=== PATIENT | female | born 1955 | race Caucasian/White ===

== ENCOUNTER → 2016-11-19 | Outpatient (CLI) | payer OTHER, BC ==
[~2016-11-19] MED LIST: ACEBUTOLOL HCL200 MG PO; ALPRAZOLAM ER3 MG PO; ALPRAZOLAM0.5 MG PO; ALPRAZOLAM2 MG PO; ASPIRIN325 MG PO; BACLOFEN10 MG PO; CARTIA XT180 MG PO; CARTIA XT240 MG PO; CYMBALTA30 MG PO; CYMBALTA60 MG PO; Cardizem CD,Cartia X PO; Cymbalta PO; DIGOXIN125 MCG PO; Ecotrin PO; HYDROCODON-ACE1 EAC7; HYDROCODON-ACE1 EAC7 PO; LIORESAL10 MG PO; LIPITOR40 MG PO; Lanoxin,Digitek PO; METHADONE10 MG PO; Methadone PO; NEXIUM40 MG PO; Omnicef PO; QUESTRAN PACKET4 GM; REGLAN10 MG PO; RISPERDAL1 MG PO; RITALIN LA20 MG PO; Reglan PO; SECTRAL PO; SECTRAL200 MG PO; TRAZODONE HCL50 MG PO; VICODIN 5-3001 EACH PO; Vicodin,Norco 5/325 PO; XANAX2 MG PO; Xanax PO; ZOLOFT100 MG PO
== END | disposition home or self-care (01) ==
LOC: RAD 09:23
DX: R10.11 Right upper quadrant pain (principal)
CPT/HCPCS: 74177

== ENCOUNTER → 2016-12-24 | Outpatient (CLI) | payer OTHER, BC | END | disposition home or self-care (01) | LOC: NUC 07:23 | DX: R10.13 Epigastric pain (principal) | CPT/HCPCS: 78226; A9537 ==

== ENCOUNTER 2017-06-07 09:13 | Day surgery (SDC) | payer OTHER, BC ==
[~2017-06-07] VITALS: Ht 152.4 cm; Wt 72.6 kg
[~2017-06-07 09:13] MED LIST changes: +ARICEPT5 MG PO; +ATORVASTATIN CA80 MG PO; +BENTYL10 MG PO; +FLECAINIDE ACE100 MG PO; +LASIX20 MG PO; +POTASSIUM CHLO10 ME3 PO; +PROTONIX40 MG PO; +RITALIN10 MG PO; +XANAX1 MG PO; +XARELTO20 MG PO
== END 2017-06-07 11:35 | disposition home or self-care (01) ==
LOC: CATH 09:13
PROC: 5A2204Z Restoration of Cardiac Rhythm, Single (ICD-10-PCS; principal; 2017-06-07)
DX: I48.1 Persistent atrial fibrillation (principal); I10 Essential (primary) hypertension; I65.22 Occlusion and stenosis of left carotid artery; E78.5 Hyperlipidemia, unspecified; E66.3 Overweight; Z68.30 Body mass index [BMI] 30.0-30.9, adult; Z79.01 Long term (current) use of anticoagulants
CPT/HCPCS: 93005

== ENCOUNTER → 2017-06-27 | Outpatient (CLI) | payer OTHER, BC | END | disposition home or self-care (01) | LOC: RAD 08:16 | DX: I06.0 Rheumatic aortic stenosis (principal); I77.1 Stricture of artery; N28.89 Other specified disorders of kidney and ureter; I48.91 Unspecified atrial fibrillation | CPT/HCPCS: 74175 ==

== ENCOUNTER 2017-07-15 09:59 | Day surgery (SDC) | payer OTHER, BC | END 2017-07-15 13:18 | disposition home or self-care (01) | LOC: CATH 09:59 | PROC: 5A2204Z Restoration of Cardiac Rhythm, Single (ICD-10-PCS; principal; 2017-07-15) | DX: I48.1 Persistent atrial fibrillation (principal); I10 Essential (primary) hypertension; I65.29 Occlusion and stenosis of unspecified carotid artery; E78.2 Mixed hyperlipidemia; Z79.01 Long term (current) use of anticoagulants | CPT/HCPCS: 93005 ==

== ENCOUNTER 2017-09-01 11:28 | Day surgery (SDC) | payer OTHER, BC ==
[2017-09-01] MEDS ORDERED: SECTRAL200 MG PO (12:16)
[2017-09-01] MEDS ORDERED: AMIODARONE HCL200 MG PO ×2 (12:17→13:14)
== END 2017-09-01 14:21 | disposition home or self-care (01) ==
LOC: CATH 11:28
PROC: 5A2204Z Restoration of Cardiac Rhythm, Single (ICD-10-PCS; principal; 2017-09-01)
DX: I48.1 Persistent atrial fibrillation (principal); I10 Essential (primary) hypertension; E78.5 Hyperlipidemia, unspecified; I65.29 Occlusion and stenosis of unspecified carotid artery; Z79.01 Long term (current) use of anticoagulants
CPT/HCPCS: 93005; J2405